=== PATIENT | male | born 1945 | race Caucasian/White ===

== ENCOUNTER 2024-01-29 12:18 | Outpatient (CLI) | payer OTHER | END 2024-01-29 12:19 | disposition home or self-care (01) | LOC: CSHCP 12:18 | PROVIDERS: ATTEND Internal Medicine | DX: J44.9 Chronic obstructive pulmonary disease, unspecified (principal); J98.4 Other disorders of lung | CPT/HCPCS: 71250; 94060; 94664; 94726; 94729; 94760 ==